=== PATIENT | female | born 1995 | race Hispanic/Latino ===

== ENCOUNTER 2018-05-27 11:41 | Emergency (ER) | payer BC ==
[2018-05-27 13:30] LABS: Urine Blood 2+ (NEG); Urine Glucose NEGATIVE (NEG); Urine Protein 1+ (NEG); Urine pH 6.5 (5.0-7.0)
[2018-05-27 13:36] LABS: Urine Bacteria <20 /HPF (<20)
[2018-05-27 13:37] LABS: Urine Culture Reflex Order NOT NEEDED; Urine Mucus 3+ /HPF (NONE SEEN)
--- NOTE | 2018-05-27 15:57 | RAD REPORT ---
EXAM DESCRIPTION: US - Transvaginal OB - 05/27/2018 3:48 pm CLINICAL HISTORY: VAGINAL BLEEDING Pelvic pain. COMPARISON: No comparisons FINDINGS: The uterus is normal in size, shape and echotexture. The uterus measures 6.6 x 3.9 x 3.7 c m. The endometrial stripe measures 6 mm, normal. No gestational sac or IUP is identified. Both ovaries are normal in size, shape and echotexture. The right ovary measures 2.8 x 2.3 x 1.9 cm. The left ovary measures 3.0 x 1.7 x 1.2 cm. No ovarian or parovarian lesions. No adnexal masses. Normal Doppler blood flow was demonstrated to both ovaries. Mild free fluid is seen in the pelvis. IMPRESSION: No IUP findings are identified.In the setting of an elevated HCG level, this would be co nsidered a of unknown location. Follow-up serial HCG levels and sonographic follow-up in 7 - 10 days would be advised.
--- NOTE | 2018-05-27 16:19 | EDPHYS ---
Physician Documentation [facility] Name: Trista Singh Age: 23 yrs Sex: Female : 1995 Arrival Date: 05/27/2018 Time: 11:45 Bed 24 Private MD: Out, [facility] ED Physician Denilson An HPI: 05/27 16:13 This 23 yrs old Female presents to ER via Ambulatory with complaints of gs Vaginal Bleeding, + Preg <12wks. 16:13 The patient presents to the emergency department with vaginal bleeding, described as gs spotting. The estimated gestational age is 6 weeks. Associated signs and symptoms: Pertinent negatives: abdominal pain, chest pain, vaginal discharge. The patient has not experienced similar symptoms in the past. 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 - Social history:: Smoking status: Patient/guardian denies using tobacco. - Ebola Screening: : No symptoms or risks identified at this time. ROS: 16:13 All other systems are negative. gs Exam: 16:13 Head/Face: Normocephalic, atraumatic. Eyes: Pupils equal round and reactive to light, gs extra-ocular motions intact. Lids and lashes normal. Conjunctiva and sclera are non-icteric and not injected. Cornea within normal limits. Periorbital areas with no swelling, redness, or edema. ENT: Nares patent. No nasal discharge, no septal abnormalities noted. Tympanic membranes are normal and external auditory canals are clear. Oropharynx with no redness, swelling, or masses, exudates, or evidence of obstruction, uvula midline. Mucous membranes moist. Neck: Trachea midline, no thyromegaly or masses palpated, and no cervical lymphadenopathy. Supple, full range of motion without nuchal rigidity, or vertebral point tenderness. No Meningismus. Chest/axilla: Normal chest wall appearance and motion. Nontender with no deformity. No lesions are appreciated. Cardiovascular: Regular rate and rhythm with a normal S1 and S2. No gallops, murmurs, or rubs. Normal PMI, no JVD. No pulse deficits. Respiratory: Lungs have equal breath sounds bilaterally, clear to auscultation and percussion. No rales, rhonchi or wheezes noted. No increased work of breathing, no retractions or nasal flaring. Back: No spinal tenderness. No costovertebral tenderness. Full range of motion. Skin: Warm, dry with normal turgor. Normal color with no rashes, no lesions, and no evidence of cellulitis. MS/ Extremity: Pulses equal, no cyanosis. Neurovascular intact. Full, normal range of motion. Neuro: Awake and alert, GCS 15, oriented to person, place, time, and situation. Cranial nerves II-XII grossly intact. Motor strength 5/5 in all extremities. Sensory grossly intact. Cerebellar exam normal. Normal gait. 16:13 Constitutional: The patient appears alert, awake. 16:13 Abdomen/GI: Palpation: abdomen is soft and non-tender, in all quadrants. Vital Signs: 11:53 BP 119 / 84; Pulse 95; Resp 16 S; Temp 97.3(TE); Pulse Ox 98% on R/A; Weight 90.72 kg aa5 (R); Height 5 ft. 3 in. (160.02 cm) (R); Pain 6/10; 15:02 BP 119 / 83; Pulse 88; Resp 18; Pulse Ox 99% on R/A; kr2 11:53 Body Mass Index 35.43 (90.72 kg, 160.02 cm) aa5 MDM: 13:31 Patient medically screened. 16:13 Differential diagnosis: ectopic , uti. Data reviewed: vital signs, nurses gs notes. Counseling: I had a detailed discussion with the patient and/or guardian regarding: the historical points, exam findings, and any diagnostic results supporting the discharge/admit diagnosis, lab results, radiology results, the need for outpatient follow up. Response to treatment: the patient's symptoms have markedly improved after treatment, and as a result, I will discharge patient. 05/27 13:08 Order name: Urine Microscopic Only; Complete Time: 14:53 gs 05/27 13:29 Order name: Urine Dipstick--Ancillary (enter results); Complete Time: 13:33 eb 05/27 13:29 Order name: Urine --Ancillary (enter results); Complete Time: 13:33 05/27 13:36 Order name: Test Serum, Qualitat; Complete Time: 14:53 EDCT 05/27 14:55 Order name: Quantitative Hcg; Complete Time: 16:00 05/27 13:08 Order name: Urine Test (obtain specimen); Complete Time: 13:26 05/27 13:08 Order name: Urine Dipstick-Ancillary (obtain specimen); Complete Time: 13:26 05/27 14:55 Order name: US Transvaginal Ob; Complete Time: 16:00 Administered Medications: No medications were administered Point of Care Testing: Urine : 13:55 hCG Reading: Negative; kr2 Disposition: 05/27/18 16:18 Discharged to Home. Impression: Threatened . - Condition is Stable. - Discharge Instructions: Threatened Miscarriage. - Medication Reconciliation Form, Thank You Letter, Antibiotic Education, Prescription Opioid Use form. - Follow up: Darrel Bowens MD; When: 2 - 3 days; Reason: Re-evaluation by your physician. Signatures: Dispatcher [employer] [facility] Cherrie Rizo, RN RN aa5 Denilson An MD MD Annette Marrufo RN RN kr2 Corrections: (The following items were deleted from the chart) 14:56 14:56 RH TYPE+[id number].[id number] ordered. [facility] 16:25 16:18 05/27/2018 16:18 Discharged to Home. Impression: Threatened . Condition kr2 is Stable. Forms are Medication Reconciliation Form, Thank You Letter, Antibiotic Education, Prescription Opioid Use. Follow up: Darrel Bowens; When: 2 - 3 days; Reason: Re-evaluation by your physician.
--- NOTE | 2018-05-27 16:19 | ER ---
Nurse's Notes [facility] Name: Trista Singh Age: 23 yrs Sex: Female : 1995 Arrival Date: 05/27/2018 Time: 11:45 Bed 24 Private MD: Out, [facility] Diagnosis: Threatened Presentation: 05/27 11:52 Presenting complaint: Patient states: vaginal bleeding that is bright red since aa5 yesterday. Pt also reports abd cramping. Pt denies N/V/D. Transition of care: patient was not received from another setting of care. Onset of symptoms was May 2018. Risk Assessment: Do you want to hurt yourself or someone else? Patient reports no desire to harm self or others. Initial Sepsis Screen: Does the patient meet any 2 criteria? No. Patient's initial sepsis screen is negative. Does the patient have a suspected source of infection? No. Patient's initial sepsis screen is negative. Care prior to arrival: None. 11:52 Method Of Arrival: Ambulatory aa5 11:52 Acuity: WILL 3 aa5 Triage Assessment: 13:27 General: Appears in no apparent distress. comfortable, well groomed, well developed, kr2 well nourished, Behavior is calm, cooperative, appropriate for age. 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 - Social history:: Smoking status: Patient/guardian denies using tobacco. - Ebola Screening: : No symptoms or risks identified at this time. Screenin:27 Abuse screen: Denies threats or abuse. Denies injuries from another. Nutritional kr2 screening: No deficits noted. Tuberculosis screening: No symptoms or risk factors identified. Fall Risk None identified. Assessment: 13:54 Obstetrical Assessment: General assessment: awake and alert, skin warm and dry, kr2 respirations even and unlabored. General: Appears in no apparent distress. uncomfortable, well groomed, well developed, well nourished. Pain: Complains of pain in pelvis Pain currently is 6 out of 10 on a pain scale. Quality of pain is described as crampy, Is continuous, Alleviated by rest. Neuro: Level of Consciousness is awake, alert, obeys commands, Oriented to person, place, time, situation, Appropriate for age. Cardiovascular: Capillary refill < 3 seconds in bilateral fingers Patient's skin is warm and dry. Respiratory: Airway is patent Respiratory effort is even, unlabored, Respiratory pattern is regular, symmetrical. GI: Abdomen is round non-distended, Reports cramping. : Urine is clear. EENT: Oral mucosa is moist. Derm: Skin is intact, is healthy with good turgor, Skin is pink, warm \T\ dry. Musculoskeletal: Circulation, motion, and sensation intact. 14:37 Reassessment: Patient appears in no apparent distress at this time. Patient and/or kr2 family updated on plan of care and expected duration. Pain level reassessed. Patient is alert, oriented x 3, equal unlabored respirations, skin warm/dry/pink. Patient crying due to negative urine test. Patient denies having any needs at this time. Given blanket and tissue. 15:03 Reassessment: Patient appears in no apparent distress at this time. Patient and/or kr2 family updated on plan of care and expected duration. Pain level reassessed. Patient is alert, oriented x 3, equal unlabored respirations, skin warm/dry/pink. 15:39 Reassessment: Patient in ultrasound at this time. kr2 Vital Signs: 11:53 BP 119 / 84; Pulse 95; Resp 16 S; Temp 97.3(TE); Pulse Ox 98% on R/A; Weight 90.72 kg aa5 (R); Height 5 ft. 3 in. (160.02 cm) (R); Pain 6/10; 15:02 BP 119 / 83; Pulse 88; Resp 18; Pulse Ox 99% on R/A; kr2 11:53 Body Mass Index 35.43 (90.72 kg, 160.02 cm) aa5 Vitals: 16:24 Heart Tones Doppler unavailable, ultrasound performed per ultrasound department. kr2 ED Course: 11:45 Patient arrived in ED. sb2 11:46 Out, [facility] is Private Physician. sb2 11:51 Arm band placed on. aa5 11:52 Triage completed. aa5 13:07 Denilson An MD is Attending Physician. 13:18 Annette Marrufo, RN is Primary Nurse. kr2 13:53 Initial lab(s) drawn, by me, sent to lab. kr2 13:56 Patient has correct armband on for positive identification. Bed in low position. Call kr2 light in reach. Side rails up X 1. Pulse ox on. NIBP on. 15:37 Patient taken to ultrasound. via wheelchair. lc3 15:49 US Transvaginal Ob In Process Unspecified. EDMS 16:06 Ultrasound completed. Patient tolerated well. Patient moved back from ultrasound. lc3 16:17 Darrel Bowens MD is Referral Physician. gs 16:23 No provider procedures requiring assistance completed. Patient did not have IV access kr2 during this emergency room visit. Administered Medications: No medications were administered Point of Care Testing: Urine : 13:55 hCG Reading: Negative; kr2 Outcome: 16:18 Discharge ordered by . gs 16:23 Discharged to home ambulatory. kr2 16:23 Condition: good 16:23 Discharge instructions given to patient, Instructed on discharge instructions, follow up and referral plans. Demonstrated understanding of instructions, follow-up care. 16:25 Patient left the ED. kr2 Signatures: Dispatcher [employer] [facility] Cherrie Rizo, RN RN aa5 Delmy Sosa lc3 Denilson An MD MD Annette Marrufo, RN RN kr2 Mary Olguin sb2
== END 2018-05-27 16:25 | disposition home or self-care (01) ==
LOC: ER 11:41
DX: O20.0 Threatened abortion (principal); Z3A.01 Less than 8 weeks gestation of pregnancy
CPT/HCPCS: 36415; 76817; 81003; 81015; 81025; 84702; 84703; 99284